=== PATIENT | female | born 1965 | race Caucasian/White ===

== ENCOUNTER → 2022-11-12 16:01 | Outpatient (BNVA) | payer MEDICARE, SELFPAY | PROVIDERS: Visit Provider Orthopaedic Surgery | DX: M48.062 Spinal stenosis, lumbar region with neurogenic claudication (principal) | CPT/HCPCS: 72100; 99204 ==

== ENCOUNTER 2022-11-25 05:25 | Day surgery (SDC) | payer MEDICARE, SELFPAY ==
[2022-11-22 13:06] VITALS: BMI 20.9
[2022-11-25] VITALS (18 sets, daily range): BP systolic 89–122; BP diastolic 3–81; PULSE 78–105; RESP 16–24; TEMP 36.1–36.8; O2SAT 96–100
--- NOTE | 2022-11-25 | XR_ITS ---
WS: [id number] XR lumbar spine 1V [id number] REASON FOR EXAM: OR PICS FINDINGS: Surgical device overlies the right side of the L5-S1 and then the L4-L5 disc space. XR/XR lumbar spine 1V [id number] IMPRESSION: Lumbar localization in surgery as above.
[2022-11-25] MEDS: sodium chloride 0.9% 1,000 ML 30 ML IV ×2 (06:23→08:56)
--- NOTE | 2022-11-25 06:26 | W.PM.OPSUD ---
Surgery/Procedure H&P Update DATE OF PROCEDURE: November 25, 2022 DATE H&P PERFORMED: 11/12/22 H&P UPDATE INFORMATION: I have reviewed H&P completed within last 30 days, I have examined patient prior to procedure and No changes to prior documentation PREOP DIAGNOSIS: Lumbar stenosis with neurogenic claudication PLANNED PROCEDURE: Operation Date: 11/25/22 07:00 Proposed Procedures p Lumbar Spine Decompression:L4/5, L5/S1, [id number](Right) - Sahil Salgado DO
[2022-11-25] MEDS: midazolam 1 mg/mL INJ 2 mL 2 MG IVP (06:48)
[2022-11-25] MEDS: clindamycin 600 MG/50 ML PREMIX 100 MG IV (07:09)
--- NOTE | 2022-11-25 07:38 | ANES.PREANE2 ---
Pre-Anesthetic Assessment Height/Weight: Height 1.68 m Weight 58.967 kg Temp Pulse Resp BP Pulse Ox O2 Del Method 98.3 F 86 16 89/72 97 11/25/22 06:06 11/25/22 06:06 11/25/22 06:06 11/25/22 06:06 11/25/22 06:06 11/25/22 06:12 Preop Diagnosis: Lumbar stenosis with neurogenic claudication Operation Date: 11/25/22 07:00 Proposed Procedures p Lumbar Spine Decompression:L4/5, L5/S1, [id number],[id number](Right) - Sahil Salgado DO Familial anesthetic complications: none Was Beta Magdalena taken within 24 hours: N/A Was Clonidine taken within 24 hours: N/A Last intake: Intake Last Liquid Date 11/24/22 Last Liquid Time 20:00 Last Solid Date 11/24/22 Last Solid Time 20:00 Social No alcohol and No tobacco Exam alert, oriented x 3, clear to auscultation bilaterally and regular rate & rhythm Airway Submandibular: within normal limits Cervical ROM: within normal limits Mallampati: Class II Dentition: false Musc/skel Lower Back Pain and Osteoarthritis/DJD Neuropsych Anxiety Chronic pain/opioid Anesthetic Plan ASA status: 3 Medications/Allergies Home Medications Medication Instructions Recorded Confirmed Last Taken Type diazepam 2 mg tablet 2 mg PO BID 11/22/22 11/22/22 11/24/22 History docusate sodium 100 mg tablet 100 mg PO DAILY 11/22/22 11/22/22 11/24/22 History doxepin 50 mg capsule 50 mg PO BEDTIME 11/22/22 11/22/22 11/24/22 History hydrocodone 5 mg-acetaminophen 325 1 tab PO Q8H PRN Pain 11/22/22 11/25/22 11/24/22 History mg tablet Allergies Allergy/AdvReac Type Severity Reaction Status Date / Time gabapentin Allergy ALGY-Hives Verified 11/25/22 06:01 Penicillins Allergy ADR-Nausea Verified 11/25/22 06:01 Current Medications Generic Name Dose Route Start Last Admin Trade Name Freq PRN Reason Stop Dose Admin Sodium Chloride 1,000 mls @ 30 mls/hr 11/25/22 06:15 11/25/22 06:23 Sodium Chloride 0.9% IV 11/26/22 06:14 30 mls/hr .Q24H SUNSHINE Administration Midazolam HCl 2 mg 11/25/22 06:06 11/25/22 06:48 Midazolam 1 Mg/Ml Inj 2 Ml IVP 2 mg Q5M PRN Administration Preop Anxiety Data Anesthesia Cardiac Studies: No Data to Display
[2022-11-25] MEDS: lidocaine-epi 1% 20 mL INJ INJECTION (07:40)
[2022-11-25] MEDS: HYDROmorphone 1 mg/mL INJ 1 mL 0.5 MG IVP ×2 (08:33→08:44)
--- NOTE | 2022-11-25 08:44 | P.OP_ITS ---
Operative Report Date of procedure: November 25, 2022 Pre-op diagnosis: Preop Diagnosis Lumbar stenosis with neurogenic claudication Post-op diagnosis: same Procedure done: 1. L4/5 laminectomy with partial facetectomy 2. L5/S1 laminectomy with partial facetectomy Surgeon: Sahil Salgado Composition Roll Maker And Cutter: Sahil Salgado Estimated blood loss (mL): 5 Procedure: 1. L4/5 laminectomy with partial facetectomy 2. L5/S1 laminectomy with partial facetectomy Patient is brought to the operative suite. After undergoing anesthesia they are placed in the prone position. All areas of impingement are well padded. Patient is then prepped and draped in the normal sterile fashion. A skin incision is made over the L4/5 level. This is confirmed under c-arm guidance. A series of dilators are passed and the tubular retractor is docked on the L4 lamina. A bovie is used to clear the soft tissue off the lamina and the L 4/5 facet joint. A high speed rupert is then used to perform the laminectomy and take down the medial aspect of the L 4/5 facet joint. A kerrison rongeure was then used to take down the remaining lamina and smooth the edge of the laminectomy up to the point where the ligamentum flavum attaches. Attention was then brought to the medial aspect of the facet joint. The remaining medial aspect of the superior and inferior aspect of the facet joint were taken down with the kerrison from the pedicle of L4 to L 5. The facet joint had significant hypertrophy. Attention was then brought to the Ligamentum Flavum. The ligament was taken down from the lamina of L4 to L5 and out medially to the remaining facet joint. The ligament was thick. The dura was then exposed. The dura was in good repair. The L4 nerve was then traced with a curette out the L4/5 foramen and found to be adequately decompressed. The L5 nerve was traced with a curette around the L5 pedicle. The lateral recess was opened with a kerrison helping to further decompress the L5 nerve. Wound is then irrigated copiously with saline and surgiflo is used to stop any bleeding. The tubular retractor is removed and the A skin incision is made over the L5/S1 level. This is confirmed under c-arm guidance. A series of dilators are passed and the tubular retractor is docked on the L5 lamina. A bovie is used to clear the soft tissue off the lamina and the L 5/S1 facet joint. A high speed rupert is then used to perform the laminectomy and take down the medial aspect of the L 5/S1 facet joint. A kerrison rongeure was then used to take down the remaining lamina and smooth the edge of the laminectomy up to the point where the ligamentum flavum attaches. Attention was then brought to the medial aspect of the facet joint. The remaining medial aspect of the superior and inferior aspect of the facet joint were taken down with the kerrison from the pedicle of L5 to S1. The facet joint had significant hypertrophy. Attention was then brought to the Ligamentum Flavum. The ligament was taken down from the lamina of L5 to S1 and out medially to the remaining facet joint. The ligament was thick. The dura was then exposed. The dura was in good repair. The L5 nerve was then traced with a curette out the L5/S1 foramen and found to be adequately decompressed. The S1 nerve was traced with a curette around the S1 pedicle. The lateral recess was opened with a kerrison helping to further decompress the S1 nerve. Wound is then irrigated copiously with saline and surgiflo is used to stop any bleeding. The tubular retractor is removed and the wound is closed with vicryl and monocryl suture. Glue is then used to protect the wound. A sterile dressing is then placed. Patient was then placed in the supine position and transferred to the PACU in stable condition.
[2022-11-25] MEDS: meperidine 50 mg/mL INJ 12.5 MG IVP (08:57)
[2022-11-25] MEDS: fentaNYL 50 mcg/mL INJ 2mL IVP (09:07)
[2022-11-25] MEDS: HYDROcodone-acetaminophen 5-325 mg Tablet 1 TAB PO (09:39)
--- NOTE | 2022-11-25 16:55 | ANE.PACU2 ---
Inpatient post-anesthesia follow up: Airway intact: Yes Vital signs: Temperature 97.3 F Pulse Rate 83 Respiratory Rate 16 Blood Pressure 91/70 Pulse Oximetry 100 Oxygen Delivery Me thod Room Air Oxygen Flow Rate 6 Fraction of Inspir ed Oxygen Hydration adequate: Yes Nausea and vomiting: No Pain level: 3 Mental status: Baseline
== END 2022-11-25 10:21 | disposition home or self-care (01) ==
PROVIDERS: Visit Provider Orthopaedic Surgery
PROC: (CPT 63005; principal; 2022-11-25 07:00)
DX: M48.062 Spinal stenosis, lumbar region with neurogenic claudication (principal); Z88.0 Allergy status to penicillin
CPT/HCPCS: 63047; 63048; 72020; 76000; J1100; J1170; J2175; J2250; J2370; J2405; J2704; J2710; J3010; J3490; J7030

== ENCOUNTER → 2022-12-10 10:41 | Outpatient (BNVA) | payer MEDICARE, SELFPAY | PROVIDERS: Visit Provider Orthopaedic Surgery | DX: Z47.89 Encounter for other orthopedic aftercare (principal) | CPT/HCPCS: 99205 ==